=== PATIENT | female | born 1965 | race Caucasian/White ===

== ENCOUNTER 2016-05-30 07:14 | Day surgery (SDC) | payer OTHER ==
[~2016-05-30] VITALS: Ht 165.1 cm; Wt 86.0 kg
--- NOTE | 2016-05-31 06:13 | OR ---
ADMIT: 05/30/2016 RM/LOC: [facility] MR#: [id number] [address] [id number] ETTA MCMAHON [address] [place] [address] Operative/Delivery Room Report SEX: F AGE: 50 : 1965 SURGERY DATE: 05/30/2016 SURGEON: Thomas Wren MD PROCEDURE: Total colonoscopy. PREOPERATIVE DIAGNOSIS: Screening colonoscopy. POSTOPERATIVE DIAGNOSIS: Normal total colonoscopy. DESCRIPTION OF THE PROCEDURE: The patient was brought to the procedure room, placed in left lateral decubitus position. Informed consent had been obtained preoperatively. The risks and benefits including, but not limited to, perforation, sedation, bleeding were discussed with the patient and agreed upon. All questions were answered, alternatives discussed the patient agreed. Monitored anesthesia care was provided by Abrahan Cronin CRNA with propofol and alfentanil. The anal inspection digital examination revealed no abnormalities or obstructing masses. Olympus videoendoscope, model CFH-180AL was inserted in to the rectum and advanced to cecum without difficulty. The appendiceal orifice and ileocecal valve were identified. The valve could not be cannulated due to position. Scope was slowly withdrawn through a normal cecum, ascending, transverse, descending, and sigmoid colon. The rectum likewise was normal. Scope was retroflexed. The anal verge appeared normal. The patient tolerated the procedure well. No complications were expected. There was no blood loss during the procedure. She will call me if she has any postoperative problems. Recommend she have repeat colonoscopy in 10 years unless signs or symptoms develop in the interval. Thomas Wren MD/ cha JOB #: [id number] CC: Thomas Wren, Attending Physician Arlene Luz, Family Physician Naomi Pozo MD
== END 2016-05-30 09:41 | disposition home or self-care (01) ==
LOC: SSS 07:14
PROC: 0DJD8ZZ Inspection of Lower Intestinal Tract, Via Natural or Artificial Opening Endoscopic (ICD-10-PCS; principal; 2016-05-30)
DX: Z12.11 Encounter for screening for malignant neoplasm of colon (principal); K21.9 Gastro-esophageal reflux disease without esophagitis; Z87.891 Personal history of nicotine dependence; Z91.040 Latex allergy status; Z79.899 Other long term (current) drug therapy